=== PATIENT | female | born 1985 | race African-American/Black ===

== ENCOUNTER 2018-06-09 02:03 | Emergency (ER) | payer BC, OTHER, SELFPAY ==
[2018-06-09 02:56] LABS: #Basophils 0.1 thou/uL (0.0-0.2); #Eosinphils 0.1 thou/uL (0.0-0.7); #Lymphocytes 2.4 thou/uL (1.20-3.40); #Monocytes 0.8 thou/uL (0.11-0.59); #Neutrophils 6.7 thou/uL (1.40-6.50); %Basophils 0.7 % (0.0-1.0); %Eosinophils 1.3 % (0.0-10.0); %Lymphocytes 23.4 % (21.0-51.0); %Monocytes 8.1 % (0.0-10.0); %Neutrophils 66.4 % (42.0-75.0); Hemoglobin 13.5 g/dL (12.0-16.0); Mean Corpuscular HGB CONC 33.9 g/dL (32.0-36.0); Mean Corpuscular Hemoglobin 32.3 pg (27.0-31.0); Mean Corpuscular Volume 95.1 fL (78.0-98.0); Mean Platelet Volume 7.1 fL (7.4-10.4); Platelet Count 288 thou/uL (130-400); RBC Distribution Width 11.7 % (11.5-14.5); Red Blood Cell (RBC) Count 4.19 mill/uL (4.20-5.40); White Blood Cell (WBC) Count 10.1 thou/uL (4.8-10.8)
[2018-06-09 03:40] LABS: Bilirubin Negative (Negative); Blood, Urine Large (Negative); Clarity CLOUDY (Clear); Glucose, Urine (Dipstick) Negative (Negative); Leukocyte Small (Negative); Nitrite Negative (Negative); Protein, Urine (Dipstick) Negative (Neg-Trace); Specific Gravity, Urine 1.025 (1.002-1.036); pH, Urine 5.5 (5.0-9.0)
[2018-06-09 03:43] LABS: Bacteria/HPF Rare-Few HPF (None Seen); Hyaline Casts/LPF 0-3 HYALINE CAST LPF (0-3 Hyaline); Pathc Cast-AUWi Flag 1.01 (0-2.49)
--- NOTE | 2018-06-09 08:53 | ULT ---
PRELIMINARY REPORT/[facility]/EMERGENTY AFTER-HOURS PROCEDURE US First Trimester, Transabdominal and US , Transvaginal US Duplex Artery and Vein of the Abdomen, Pelvis, Scrotum and/or Retroperitoneum. Complete Ovarian. EXAM DATE/TIME: 06/09/2018 3:14 AM CLINICAL HISTORY: 33 years old, female; Signs and symptoms; Lmp or gestational age (in weeks): 6w5d; Antepartum complic ations; Bleeding; ; Patient HX: Vaginal bleeding tonight with . Bleeding has stopped per patient TECHNIQUE: Real-time transabdominal obstetrical ultrasound of the maternal pelvis and a first trimester pregnanc y, less than 14 weeks 0 days, with image documentation. Transvaginal imaging was used for better eval uation of the fetus and adnexa. Real-time duplex ultrasound scan of the arterial and venous flow with color Doppler flow and spectral waveform analysis. Complete duplex exam focused on the ovaries. COMPARISON: No relevant prior studies available. FINDINGS: Transabdominal ultrasound showed an intrauterine gestational sac. Transvaginal ultrasound was perform ed for evaluation of pole. Transabdominal and transvaginal obstetrical ultrasound was performed . Duplex ultrasound scan with color Doppler flow and spectral waveform analysis was also performed fo r evaluation of pelvic and ovarian blood flow and torsion. Gestation: Single, living intrauterine gestation. heart [id number] beats per minute. CRL 0.58 cm, 6w3d. Yolk sac visualized. Small subchorionic hemorrhage. Placenta/amniotic fluid: Cannot be adequately evaluated due to the early gestational age. Unremarkabl e as visualized. Uterus/cervix: See above. No myometrial mass. Right ovary: No acute findings. No mass. Normal blood flow. No evidence of torsion. Left ovary: No acute findings. No mass. Normal blood flow. No evidence of torsion. Free fluid: No free fluid. IMPRESSION: Single viable intrauterine . Small subchorionic hemorrhage. Thank you for allowing us to participate in the care of your patient. Dictated and Authenticated by: Trent London MD 06/09/2018 4:18 AM Central Time ([place] & [place]) FINAL REPORT by Dr. Christine EMERGENCY AFTER HOURS STUDY ULTRASOUND PELVIC ULTRASOUND TRANSVAGINAL DOPPLER DUPLEX: DATE: 06-09-18 TIME: 3:36 A.M. HISTORY: 33-year-old female with first trimester vaginal bleeding. TECHNIQUE: Transabdominal transducer used to evaluate intrapelvic contents using the urinary bladder as an acous tic window. Endovaginal transducer used to visualize intrapelvic contents in greater detail. Color fl ow Doppler and Pulsed Doppler spectral waveform analysis of ovaries. FINDINGS: Intrauterine gestational sac containing embryonic pole with crown rump length of 0.6 cm corresponding to 6w 3d. heart rate 123 bpm. Yolk sac visualized. Questionable tiny subchorionic hemorrhage. No free fluid in the cul-de-sac. No abnormalities of the ovaries noted. Agree with preliminary report by [facility]. IMPRESSION: 1. Live first trimester intrauterine gestation estimated to be 6 weeks 3 days gestational age. 2. Questionable tiny subchorionic hemorrhage. RANDY Yu POS: BASIL
[2018-06-11 01:20] LABS: Chlamydia by PCR Not Detected (NotDetected); GC by PCR Not Detected (NotDetected)
== END 2018-06-09 04:36 | disposition home or self-care (01) ==
LOC: ERS 02:03
DX: O20.8 Other hemorrhage in early pregnancy (principal); O23.511 Infections of cervix in pregnancy, first trimester; Z3A.10 10 weeks gestation of pregnancy
CPT/HCPCS: 36415; 76856; 81003; 81015; 84702; 85025; 86900; 86901; 87480; 87491; 87510; 87591; 87660